=== PATIENT | female | born 1965 | race Caucasian/White ===

== ENCOUNTER → 2017-01-29 | Outpatient (CLI) | payer OTHER | LOC: RAD 11:59 | DX: S99.921A Unspecified injury of right foot, initial encounter (principal); X58.XXXA Exposure to other specified factors, initial encounter; Y93.89 Activity, other specified; Y92.89 Other specified places as the place of occurrence of the external cause; Y99.8 Other external cause status; M79.671 Pain in right foot ==

== ENCOUNTER → 2017-12-31 | Outpatient (CLI) | payer OTHER ==
[~2017-12-31] MED LIST: AMITRIPTYLINE H50 M2 PO; ANTIVERT25 MG PO; ATENOLOL 50MG T50 M1 PO; ATIVAN1 MG PO; BREO ELLIPTA 11 EACH INH; DIFLUCAN150 MG PO; FLEXERIL PO; HYDROCODONE-AP1 EAC6 PO; IBUPROFEN 800800 M1 PO; K-DUR 20 MEQ T20 MEQ PO; LOTRISONE CREAM15 GM SPRAY; LYRICA 50 MG50 MG PO; NITROGLYCERIN0.4 MG SUBLING; SERTRALINE HCL100 MG PO; TRIAMTERENE/HCT1 CA1 PO; VENTOLIN HFA 1818 GM INH
== END ==
LOC: RAD 13:00
DX: R06.02 Shortness of breath (principal)

== ENCOUNTER → 2018-02-10 | Outpatient (CLI) | payer OTHER | LOC: CAT 06:14 | DX: R06.00 Dyspnea, unspecified (principal); J84.10 Pulmonary fibrosis, unspecified; K44.9 Diaphragmatic hernia without obstruction or gangrene ==

== ENCOUNTER → 2018-02-17 | Outpatient (CLI) | payer OTHER | LOC: MRI 02-13 16:24 | DX: M46.86 Other specified inflammatory spondylopathies, lumbar region (principal); M51.24 Other intervertebral disc displacement, thoracic region ==

== ENCOUNTER → 2018-03-12 | Outpatient (CLI) | payer OTHER | LOC: MRI 06:59 | DX: M51.14 Intervertebral disc disorders with radiculopathy, thoracic region (principal) ==

== ENCOUNTER → 2018-04-07 | Outpatient (CLI) | payer OTHER ==
[~2018-04-07] VITALS: Ht 157.5 cm; Wt 85.7 kg
--- NOTE | ~2018-04-07 | HPC ---
[facility] [address] [place] [address] PAIN MANAGEMENT CONSULTATION Name: SAKINA DUFFY Room #: REG [facility] M.Freddy.#: [id number] Admission: 04/07/18 Attend Phys: Andre Michelle DO Discharge: Date of : 65 Report #: [id number] THIS REPORT FOR: //name// CC: Prashanth Michelle The patient is a 52-year-old female seen in consultation at the request of Dr. Jhaveri for evaluation of pain, low back, primary left hip with right lumbar radicular pain and weakness in the right leg. Notes she has episodic paresthesia in this leg. She rates pain anywhere from 7-10 on a VAS, describes it as continuous, steady, constant, rhythmic, gnawing, throbbing, pounding, sharp, stabbing, crushing, and aching. 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 She was prescribed compressive stockings, but has yet to wear them. She notes ice helps her back, lorazepam has helped some with anxiety. She notes pain seems to be exacerbated with activities, it does seem to be a neurogenic claudication component. She denies any myelopathic symptoms, no loss of proprioception, bowel or bladder continence changes. REVIEW OF SYSTEMS: A complete review of systems was attached to chart and was gone over with the patient. She is , seen in the company of her who is supportive. She does not smoke or drink alcohol to excess. History of reactive airway disease, uses ProAir inhaler and Breo. She does take atenolol for hypertension and has Nitrostat for anginal type symptoms. Significant anxiety concerns, takes sertraline, Elavil, lorazepam and Lyrica. In the past year diagnosed with some vertigo and inner ear dysfunction, does take meclizine p.r.n. She takes ibuprofen and hydrocodone rarely for pain. The patient lists her occupation as disabled secondary to traumatic brain injury. She has been disabled since 1993. Pain impact score is quite high, averaging 63/70. PHYSICAL EXAMINATION: Reveals a 5 feet 2 inches, 189 pounds female, BMI is modestly elevated at 34.6 kg/m2. Blood pressure 126/74, pulse 75, respirations are 20. Cranial nerves 2-12 are grossly intact. Pupils are equal and react to light and accommodation. Extraocular muscles are intact. There is no nystagmus. Lateral gaze deviation. Thyroid is modestly enlarged. Cervical range of motion is generally preserved. Upper extremity strength is preserved. Heart is regular and rhythmical without murmur. Lungs are clear to auscultation. Rises from chair using armrest. She has some mild ataxia. She uses a cane in her right hand for balance. Tender across the low back, though no discrete trigger points are noted. Right lower extremity dorsiflexion, lower extremity extension is significantly diminished about 3/5 to objective testing; hip flexion is 3-4/5. Left leg is a little bit stronger at 4/5. Patellar and Achilles reflexes are preserved. Nominally positive straight leg raise on the right at 30 degrees. She does have subjective decreased 2-point discrimination [address] [address] PAIN MANAGEMENT CONSULTATION Name: SAKINA DUFFY Room #: REG [facility] Schuler#: [id number] Admission: 04/07/18 Attend Phys: Andre Michelle DO Discharge: Date of : 65 Report #: [id number] in the right anterior thigh. DIAGNOSTIC STUDIES: Include MRI of the thoracic spine, which did note a left paracentral disk protrusion at T9-T10. Lumbar spine from 02/17/2018, notes L4-L5 to have a prominent facet osteophyte contributing to mild right neural foraminal narrowing. ASSESSMENT: Symptomatic lumbar radiculopathy by clinical exam and history, the patient with multiple comorbidities including history of traumatic brain injury, some axial back pain, hypertension, coronary artery disease and significant stress and anxiety. RECOMMENDATION: Epidural injection under fluoroscopy today. Follow up in 2 weeks to evaluate efficacy. Thank you for allowing me to participate in the patient's care. I will keep you abreast of her progress. PROCEDURE: Lumbar epidural injection under fluoroscopy. PROCEDURE NOTE: After both written and informed consent to include risk of spinal cord damage, increased pain, weakness and dural puncture, the patient was taken to the fluoroscopy suite, placed in the prone position. After sterile prep and drape, a skin wheal with lidocaine was raised. A 22-gauge epidural Tuohy needle was inserted in the midline at L4-L5 with good loss to resistance. Negative aspiration for cerebrospinal fluid or blood was noted. Then 1 mL of Omnipaque under biplanar fluoroscopy showed good spread within the epidural space. This was followed with 80 mg of triamcinolone plus 1 mL of 1.5% preservative-free Xylocaine, 0.5 mL Xylocaine was then injected to flush the needle; it was removed. The patient was monitored for an appropriate period of time and discharged in good and stable condition. <ELECTRONICALLY SIGNED> By: Andre Michelle DO 04/10/18 [id number] [id number] Andre Michelle DO /nt
[2018-04-07 09:42] VITALS: BP 126/74
== END | disposition home or self-care (01) ==
LOC: PAIN 06:31
DX: M54.16 Radiculopathy, lumbar region (principal); M54.9 Dorsalgia, unspecified; I10 Essential (primary) hypertension; I25.10 Atherosclerotic heart disease of native coronary artery without angina pectoris; J45.909 Unspecified asthma, uncomplicated; M19.90 Unspecified osteoarthritis, unspecified site; E07.9 Disorder of thyroid, unspecified; F32.9 Major depressive disorder, single episode, unspecified; F41.9 Anxiety disorder, unspecified; Z87.820 Personal history of traumatic brain injury; Z79.899 Other long term (current) drug therapy; Z98.890 Other specified postprocedural states; Z88.0 Allergy status to penicillin; Z88.8 Allergy status to other drugs, medicaments and biological substances

== ENCOUNTER → 2018-04-21 | Outpatient (CLI) | payer OTHER ==
[~2018-04-21] VITALS: Ht 157.5 cm; Wt 79.7 kg
--- NOTE | ~2018-04-21 | HPC ---
[facility] [place] [address] PAIN MANAGEMENT CONSULTATION Name: CLIVESAKINA Alaina Room #: REG [facility] Bernie.#: [id number] Admission: 04/21/18 Attend Phys: Andre Michelle DO Discharge: Date of : 65 Report #: [id number] THIS REPORT FOR: //name// CC: Prashanth Michelle DATE OF SERVICE: 04/21/2018 The patient is a 52-year-old female seen in consultation on 04/07/2018. Diagnosed with symptomatic lumbar radiculopathy, component of axial back pain. Comorbidity includes history of traumatic brain injury, coronary artery disease. We performed epidural injection L4-L5 at that time. The patient returns to pain clinic today noting at least 50% improvement in functional status. She is walking quicker and better, still has some balance issues. Uses a cane for balance. She did fall once walking her dog last week. States her legs simply "got ahead of her." PHYSICAL EXAMINATION: Otherwise shows 52-year-old female, alert and oriented, though she does have some cognitive defect secondary to a traumatic brain injury. She is a reasonable historian. Rises from chair using armrest. She does have a little bit of ataxic, antalgic gait, but does appear to actually be a little more improved. Lower extremity strength is symmetric. Positive straight leg raise bilaterally. ASSESSMENT: Symptomatic lumbar radiculopathy by clinical exam and history. RECOMMENDATION: Repeat epidural injection under fluoroscopy today at L4-L5. Continue range of motion, physical therapy (she is doing her PT at home, states she had transportation issues getting out to physical therapy, but to her credit, she is fairly aggressive with ongoing PT). Follow up simply as needed. ASSESSMENT: Symptomatic lumbar radiculopathy. PROCEDURE: Lumbar epidural injection under fluoroscopy. PROCEDURE NOTE: After both written and informed consent to include risk of spinal cord damage, increased pain, weakness and dural puncture, the patient was taken to the fluoroscopy suite, placed in the prone position. After sterile prep and drape, a skin wheal with lidocaine was raised. A 22-gauge epidural Tuohy needle was inserted in the midline at L4-L5 with good loss to resistance. Negative aspiration for cerebrospinal fluid or blood was noted. Then 1 mL of Omnipaque under biplanar fluoroscopy showed good spread within the epidural space. This was followed with 80 mg of triamcinolone plus 1 mL of 1.5% [address] [address] PAIN MANAGEMENT CONSULTATION Name: SAKINA DUFFY Alaina Room #: REG [facility] Harini#: [id number] Admission: 04/21/18 Attend Phys: Andre Michelle, DO Discharge: Date of : 65 Report #: [id number] preservative-free Xylocaine, 0.5 mL Xylocaine was then injected to flush the needle; it was removed. The patient was monitored for an appropriate period of time and discharged in good and stable condition. By: [id number] Andre Michelle DO /fritz
[2018-04-21 09:44] VITALS: BP 133/56
== END | disposition home or self-care (01) ==
LOC: PAIN 06:41
DX: M54.16 Radiculopathy, lumbar region (principal); I25.10 Atherosclerotic heart disease of native coronary artery without angina pectoris; Z87.820 Personal history of traumatic brain injury; Z79.899 Other long term (current) drug therapy; Z87.891 Personal history of nicotine dependence; Z88.0 Allergy status to penicillin; Z88.8 Allergy status to other drugs, medicaments and biological substances; Z79.891 Long term (current) use of opiate analgesic; Z98.890 Other specified postprocedural states

== ENCOUNTER → 2019-05-13 | Outpatient (CLI) | payer OTHER ==
[~2019-05-13] VITALS: Ht 157.5 cm; Wt 80.2 kg
[~2019-05-13] MED LIST changes: +TERBINAFINE HC250 MG PO
--- NOTE | ~2019-05-13 | P ---
[facility] [place] [address] PROCEDURE REPORT Name: SAKINA DUFFY Room #: REG [facility].#: [id number] Admission: 05/13/19 ������������������ Attend Phys: Vincent Michelle DO Discharge: ������������������ Date of : 65 Report #: [id number] THIS REPORT FOR: //name// CC: Prashanth Michelle DATE OF SERVICE: 05/13/2019 DESCRIPTION OF PROCEDURE: T9-T10 thoracic epidural injection under fluoroscopic guidance. After obtaining written consent, the patient was taken back to fluoroscopy suite, placed in prone position with a pillow under the chest to increase thoracic kyphosis. The area overlying the target site of injection was prepped and draped in aseptic fashion using chlorhexidine. A 27-gauge 1-1/4-inch needle was then used to anesthetize skin and subcutaneous tissue with 2 mL of 1% lidocaine. A 20-gauge 3-1/2-inch Tuohy needle was advanced under fluoroscopic guidance towards the epidural space using a left paramedian approach. Epidural space identified using loss of resistance to air technique. After negative aspiration for heme or cerebrospinal fluid, 1 mL of Omnipaque injected. A thoracic epidurogram was confirmed using both AP and lateral fluoroscopy. After negative aspiration for heme or cerebrospinal fluid, 5 mL of a solution containing 2 mL 40 mg per mL, 80 mg total triamcinolone, 3 mL lidocaine 1% injected slowly. Needle then retracted approximately longterm, flushed with 1 mL of 1% lidocaine and then removed. Sterile bandage placed over injection site. No new motor deficits present in the upper or lower extremities following procedure. The patient tolerated the procedure well, carefully escorted to recovery room in stable condition. No apparent complications. After meeting discharge criteria, the patient discharged home. ��������������������������������������������� ���������������������������������������� By: ��������������������������������������������� 1807 1153 Vincent Michelle DO /nt
--- NOTE | ~2019-05-13 | HPC ---
[facility] [address] [place] [address] PAIN MANAGEMENT CONSULTATION Name: SAKINA DUFFY Room #: REG [facility]..#: [id number] Admission: 05/13/19 ������������������ Attend Phys: Vincent Michelle DO Discharge: ������������������ Date of : 65 Report #: [id number] THIS REPORT FOR: //name// CC: Prashanth Michelle DATE OF SERVICE: 05/13/2019 CHIEF COMPLAINT: Thoracic radicular symptoms. HISTORY OF PRESENT ILLNESS: As you know, the patient is a 53-year-old morbidly obese female followed by my partner, Dr. Andre Michelle for thoracic radiculopathy and lumbar radiculopathy. She has returned today in followup visit per the request of Dr. Prashanth Jhaveri to undergo a thoracic epidural injection under fluoroscopic guidance to address the reported 7/10 pain. She indicates pain begins in the mid back area, radiates around the front in a typical thoracic radicular fashion. The patient reports good efficacy with the epidural injection provided by Dr. Andre Michelle in the past. As you are aware, the patient has changes at the T9 and T10 level that does correlate with her symptoms. She returns today to undergo thoracic epidural injection under fluoroscopic guidance to address thoracic radicular symptoms. ALLERGIES: PENICILLIN, ALOE VERA, CEPHALEXIN, DOXYCYCLINE, OMEPRAZOLE, ESCITALOPRAM. CURRENT MEDICATIONS: Terbinafine, fluticasone, cyclobenzaprine, pregabalin, nitroglycerin, meclizine, amitriptyline, ibuprofen, albuterol, atenolol, potassium chloride, sertraline, lorazepam, hydrocodone, fluticasone, hydrochlorothiazide, triamterene. SOCIAL HISTORY: The patient denies tobacco, alcohol, IV or illicit drug use. She is disabled, unaccompanied today. PQRS: The patient has known right knee and left shoulder osteoarthritis. No rheumatoid arthritis. She is placing pain intensity 7/10. She is a fall risk, has had multiple falls in the last three months. She attributes this to her traumatic brain injury. She does not use any type of ambulatory device, though we discussed this with the patient today. She is not on blood thinners. She is treated for hypertension. She is on chronic opioids. She has a moderate risk for opioid addiction. She is placing pain impact score at 67/70 indicating complete interference of daily activities secondary to pain. PHYSICAL EXAMINATION: VITAL SIGNS: Blood pressure 131/80, pulse 67, respiratory rate 14 and unlabored. The patient is 97% on room air. Height 5 feet 2 inches tall, weight [address] [address] PAIN MANAGEMENT CONSULTATION Name: SAKINA DUFFY Room #: REG [facility] M.R.#: [id number] Admission: 05/13/19 ������������������ Attend Phys: Vincent Michelle DO Discharge: ������������������ Date of : 65 Report #: [id number] 176.8 pounds, BMI calculated 32.3. GENERAL: Well-developed, well-nourished, well-hydrated, obese 53-year-old female appearing stated age, placing current pain score at 7/10. HEENT: Normocephalic, atraumatic. Pupils equal, round, reactive to light. Speech is fluent for the patient. EXTREMITIES: Show no clubbing, no cyanosis, and no edema. MUSCULOSKELETAL: There is some palpatory tenderness noted over the lower thoracic areas mainly in the paraspinal musculature. No trigger points, multiple tender points, no spinous process tenderness. Cervical provocation is met with no increase in overall pain. She is intact to light touch from C5-T1 dermatomes T1 through T12 dermatomes and L1 through S2 dermatomes. There is no rash, lesions, or ulcerations overlying distribution of symptoms concerning for herpes zoster. ASSESSMENT: 1. Thoracic radiculopathy. 2. Displacement of a thoracic intervertebral disk with radicular symptoms. 3. Chronic intractable pain. PLAN: 1. The patient has returned today in followup visit per the request of her primary care physician, Dr. Prashanth Jhaveri to undergo a thoracic epidural injection under fluoroscopic guidance. The patient has done very well with a previous thoracic epidural injection reporting near 100% improvement in overall pain. She returns today to undergo the next in the series of thoracic injections to address the findings at the T9-T10 level. The patient has been advised of the risks and the benefits of a thoracic epidural injection. These risks include but are not necessarily limited to bleeding, bruising, infection, worsening pain, no relief of pain, also risk of temporary or permanent muscle weakness, temporary or permanent nerve damage, possible paralysis, post-dural puncture headache and . The patient states she understood and wished to proceed. 2. No medication changes made at today's visit. The patient will continue current medical therapy as previously prescribed. 3. We will see the patient back in followup visit on an as needed basis for possible next in the series of thoracic epidural injections. ��������������������������������������������� ���������������������������������������� By: ��������������������������������������������� 1807 [id number] Vincent Michelle DO /nt
[2019-05-13 10:32] VITALS: BP 131/80
--- NOTE | 2019-05-13 10:58 | NUR ---
Pain Clinic Assessment: 1. History of Osteoarthritis: rt knee arm left History of Rheumatoid Arthritis: Not Applicable 2. Height: 5 ft. 2 in. 157.5 cm. Weight: 176.8 lb. oz. 80.196 kg. Patient's BMI: 32.3 3. Vital Signs: BP: 131/80 Pulse: 67 Resp: 14 Temp: 02 Sat: 97 ECG Mon: 4. Pain Intensity: 7 5. Fall Risk: Dizziness: Y Needs help standing or walking: Y Fallen in the last 3 months: Y Fall risk comments: 6. Patient on Blood Thinner: None 7. History of Hypertension: N 8. Opioid Therapy greater than 6 weeks: Y Opiate Contract Signed: 9. Risk Assessment Tool Provided: mod risk 10. Functional Assessment Tool: 11. Recreational Drug Use: Never Drug Type: Tobacco Use: Former Smoker Tobacco Type: Amount or Packs/day: How Many Years: Alcohol Use: No Frequency: Quant:
== END | disposition home or self-care (01) ==
LOC: PAIN 06:53
DX: M51.14 Intervertebral disc disorders with radiculopathy, thoracic region (principal); G89.29 Other chronic pain; M19.012 Primary osteoarthritis, left shoulder; I10 Essential (primary) hypertension; M17.11 Unilateral primary osteoarthritis, right knee; Z88.0 Allergy status to penicillin; Z88.8 Allergy status to other drugs, medicaments and biological substances; Z79.891 Long term (current) use of opiate analgesic; Z79.899 Other long term (current) drug therapy; Z87.891 Personal history of nicotine dependence

== ENCOUNTER → 2019-12-09 | Outpatient (CLI) | payer OTHER | LOC: RAD 12:20 | DX: M19.022 Primary osteoarthritis, left elbow (principal); M77.8 Other enthesopathies, not elsewhere classified ==